=== PATIENT | male | born 1990 | race Caucasian/White ===

== ENCOUNTER 2021-06-01 01:22 | Emergency (ER) | payer OTHER ==
[~2021-06-01] VITALS: Ht 190.5 cm; Wt 90.7 kg
[2021-06-01] MEDS ORDERED: PRILOSEC OTC20 MG PO (02:31)
[2021-06-01] MEDS ORDERED: CLONAZEPAM 0.50.5 M1 PO (02:32)
[2021-06-01] MEDS ORDERED: ZYRTEC10 M4 PO (02:33)
[2021-06-01] MEDS ORDERED: ADDERALL 30 MG30 MG PO (02:33)
[2021-06-01] MEDS ORDERED: ADDERALL 20 MG20 MG PO (02:34)
[2021-06-01 03:40] LABS: HEMATOCRIT 40.8 % (42.0-52.0); HEMOGLOBIN 14.5 gm/dL (14.0-18.0); MCH 31.9 pg (26.0-34.0); MCHC 35.4 g/dL (28.0-37.0); MCV 90.1 fL (80.0-100.0); MPV 7.6 fl. (7.2-11.1); RBC 4.53 mil/uL (4.50-6.00); RDW-CV 13.8 % (10.5-14.5); WBC 9.1 thou/uL (4.0-11.0)
[2021-06-01 03:48] LABS: CALCIUM 7.9 mg/dL (8.5-10.1); CREATININE 1.1 mg/dL (0.6-1.3); POTASSIUM 3.3 mmol/L (3.5-5.1)
[2021-06-01 03:53] LABS: ALBUMIN 4.1 g/dL (3.4-5.0); TOTAL BILIRUBIN 0.7 mg/dL (<0.1-1.0); TOTAL PROTEIN 6.9 g/dL (6.4-8.2)
[2021-06-01] MEDS ORDERED: TORADOL 10 MG T10 MG PO ×2 (05:31→06:31)
[2021-06-01] MEDS ORDERED: HYDROCODON-ACE1 EAC7 PO ×2 (05:31→06:31)
[2021-06-01 05:45] VITALS: BP 112/69
== END 2021-06-01 06:44 | disposition home or self-care (01) ==
LOC: M.ERS 01:22
PROVIDERS: Personal Emergency Response Attendant
DX: S20.211A Contusion of right front wall of thorax, initial encounter (principal); Z88.1 Allergy status to other antibiotic agents; Z90.49 Acquired absence of other specified parts of digestive tract; W55.22XA Struck by cow, initial encounter; Y93.89 Activity, other specified; Y92.89 Other specified places as the place of occurrence of the external cause; Y99.8 Other external cause status